=== PATIENT | male | born 1930 | race Caucasian/White ===

== ENCOUNTER 2018-03-13 19:16 | Emergency (ER) | payer OTHER ==
[~2018-03-13] VITALS: Ht 162.6 cm; Wt 63.5 kg
[2018-03-13 19:26] VITALS: Ht 162.6 cm; Wt 63.5 kg
[2018-03-13 21:22] VITALS: BP 128/78
== END 2018-03-13 21:22 | disposition home or self-care (01) ==
LOC: ED 19:16
DX: S09.90XA Unspecified injury of head, initial encounter (principal); S00.91XA Abrasion of unspecified part of head, initial encounter; W01.10XA Fall on same level from slipping, tripping and stumbling with subsequent striking against unspecified object, initial encounter; Y93.89 Activity, other specified; Y92.89 Other specified places as the place of occurrence of the external cause; Y99.8 Other external cause status; I10 Essential (primary) hypertension; E11.9 Type 2 diabetes mellitus without complications

== ENCOUNTER 2018-03-31 18:48 | Inpatient (IN) | payer OTHER ==
[~2018-03-31] VITALS: Ht 165.1 cm; Wt 54.6 kg
[2018-03-31 19:00] VITALS: Ht 165.1 cm; Wt 54.6 kg
[2018-03-31 19:52] LABS: BASOPHIL % 0.2 % (0-2); PLATELET COUNT 257 x10^3mcL (130-400)
[2018-03-31 19:54] LABS: RED CELL DISTRIBUTION WIDTH 15.2 % (11.5-14.5)
[2018-03-31 19:57] LABS: CALCIUM 8.3 mg/dL (8.5-10.1); CARBON DIOXIDE 27.9 mmol/L (21-32); CHLORIDE SERUM 101 mmol/L (98-107); CREATININE SERUM 0.9 mg/dL (0.7-1.3); GLUCOSE SERUM 142 mg/dL (74-106); POTASSIUM SERUM 3.3 mmol/L (3.5-5.1); SODIUM SERUM 141 mmol/L (136-145)
[2018-03-31 20:09] LABS: ALBUMIN 3.7 g/dL (3.4-5.0); ALKALINE PHOSPHATASE 122 U/L (46-116); ALT/SGPT 22 U/L (16-63); AMYLASE 61 U/L (25-115); AST/SGOT 25 U/L (15-37); BILIRUBIN TOTAL 1.7 mg/dL (0.20-1.00); CHOLESTEROL 178 mg/dL (<200); LIPASE 155 IU/L (73-393); T4(THYROXINE) 10.6 ug/dL (4.7-13.3); TOTAL PROTEIN, SERUM 7.2 g/dL (6.4-8.2)
[2018-03-31 20:15] LABS: HDL CHOLESTEROL 68 mg/dL (40-60)
[2018-03-31 21:39] LABS: UA SPECIFIC GRAVITY 1.025 (1.005-1.035); microscopic required? YES; urine erythrocyte 1+ (NEGATIVE)
[2018-03-31 21:51] LABS: AMPHETAMINE QUAL UR NONE DETECTED (See below)
[2018-04-01] MEDS ORDERED: METFORMIN HCL750 MG PO (01:03)
[2018-04-01] MEDS ORDERED: COZAAR100 MG PO (01:03)
[2018-04-01] MEDS ORDERED: DIGOX0.125 MG PO (01:04)
[2018-04-01] MEDS ORDERED: TOPROL XL25 MG PO (01:04)
[2018-04-01] MEDS ORDERED: B-121000 MC2 PO (01:04)
[2018-04-01] MEDS ORDERED: METOPROLOL TART25 M1 PO (01:05)
[2018-04-01 02:50] VITALS: BP 167/102
[2018-04-01 05:54] VITALS: BP 161/101
[2018-04-01 07:05] LABS: ALKALINE PHOSPHATASE 103 U/L (46-116); ALT/SGPT 21 U/L (16-63); AST/SGOT 22 U/L (15-37); BILIRUBIN TOTAL 1.46 mg/dL (0.20-1.00); CALCIUM 7.6 mg/dL (8.5-10.1); CARBON DIOXIDE 27.5 mmol/L (21-32); CHLORIDE SERUM 102 mmol/L (98-107); CREATININE SERUM 0.7 mg/dL (0.7-1.3); GLUCOSE SERUM 116 mg/dL (74-106); MAGNESIUM 1.4 mg/dL (1.8-2.4); PHOSPHOROUS 2.5 mg/dL (2.5-4.9); POTASSIUM SERUM 3.4 mmol/L (3.5-5.1); SODIUM SERUM 137 mmol/L (136-145)
[2018-04-01 07:14] LABS: ALBUMIN 2.9 g/dL (3.4-5.0); BASOPHIL % 0.5 % (0-2); PLATELET COUNT 208 x10^3mcL (130-400); RED CELL DISTRIBUTION WIDTH 14.5 % (11.5-14.5)
[2018-04-01 08:41] VITALS: BP 153/88
[2018-04-01 16:02] VITALS: BP 157/94
[2018-04-01 20:29] VITALS: BP 152/100
[2018-04-01 23:10] VITALS: BP 143/88
[2018-04-02 05:31] VITALS: BP 143/93
[2018-04-02 07:24] LABS: CALCIUM 8.2 mg/dL (8.5-10.1); CARBON DIOXIDE 24.8 mmol/L (21-32); CHLORIDE SERUM 101 mmol/L (98-107); CREATININE SERUM 0.8 mg/dL (0.7-1.3); GLUCOSE SERUM 174 mg/dL (74-106); MAGNESIUM 1.7 mg/dL (1.8-2.4); POTASSIUM SERUM 3.7 mmol/L (3.5-5.1); SODIUM SERUM 135 mmol/L (136-145)
[2018-04-02 08:37] VITALS: BP 148/82
[2018-04-02 20:58] VITALS: BP 140/94
[2018-04-03 04:40] VITALS: BP 148/91
[2018-04-03 09:47] VITALS: BP 145/88
[2018-04-03 11:02] LABS: ALKALINE PHOSPHATASE 111 U/L (46-116); ALT/SGPT 18 U/L (16-63); AST/SGOT 17 U/L (15-37); BILIRUBIN TOTAL 0.8 mg/dL (0.20-1.00); CALCIUM 7.8 mg/dL (8.5-10.1); CARBON DIOXIDE 26.3 mmol/L (21-32); CHLORIDE SERUM 103 mmol/L (98-107); CREATININE SERUM 0.6 mg/dL (0.7-1.3); GLUCOSE SERUM 233 mg/dL (74-106); POTASSIUM SERUM 3.3 mmol/L (3.5-5.1); SODIUM SERUM 138 mmol/L (136-145)
[2018-04-03 11:03] LABS: ALBUMIN 2.9 g/dL (3.4-5.0)
[2018-04-03 11:06] LABS: BASOPHIL % 0.3 % (0-2); PLATELET COUNT 208 x10^3mcL (130-400)
[2018-04-03 11:11] LABS: RED CELL DISTRIBUTION WIDTH 15.2 % (11.5-14.5)
[2018-04-03 12:37] VITALS: BP 145/96
[2018-04-03 20:59] VITALS: BP 104/67
[2018-04-04 05:48] VITALS: BP 141/86
[2018-04-04 06:27] LABS: ALKALINE PHOSPHATASE 108 U/L (46-116); ALT/SGPT 17 U/L (16-63); AST/SGOT 18 U/L (15-37); BILIRUBIN TOTAL 0.64 mg/dL (0.20-1.00); CALCIUM 8.3 mg/dL (8.5-10.1); CARBON DIOXIDE 27.2 mmol/L (21-32); CHLORIDE SERUM 102 mmol/L (98-107); GLUCOSE SERUM 145 mg/dL (74-106); MAGNESIUM 1.7 mg/dL (1.8-2.4); PHOSPHOROUS 2.9 mg/dL (2.5-4.9); POTASSIUM SERUM 3.5 mmol/L (3.5-5.1); SODIUM SERUM 136 mmol/L (136-145)
[2018-04-04 06:50] LABS: ALBUMIN 2.8 g/dL (3.4-5.0)
[2018-04-04 07:08] LABS: BASOPHIL % 0.3 % (0-2); PLATELET COUNT 217 x10^3mcL (130-400)
[2018-04-04 07:10] LABS: RED CELL DISTRIBUTION WIDTH 14.9 % (11.5-14.5)
[2018-04-04 08:54] VITALS: BP 121/78
[2018-04-04 12:17] VITALS: BP 134/94
[2018-04-04 17:00] VITALS: BP 113/73
[2018-04-04 19:49] VITALS: BP 105/67
[2018-04-05 06:45] VITALS: BP 142/76
[2018-04-05 08:20] VITALS: BP 131/69
[2018-04-05 10:08] LABS: ALKALINE PHOSPHATASE 107 U/L (46-116); ALT/SGPT 14 U/L (16-63); AST/SGOT 15 U/L (15-37); BILIRUBIN TOTAL 0.7 mg/dL (0.20-1.00); CALCIUM 8.2 mg/dL (8.5-10.1); CARBON DIOXIDE 27.4 mmol/L (21-32); CHLORIDE SERUM 100 mmol/L (98-107); CREATININE SERUM 0.8 mg/dL (0.7-1.3); GLUCOSE SERUM 251 mg/dL (74-106); SODIUM SERUM 133 mmol/L (136-145)
[2018-04-05 10:10] LABS: ALBUMIN 2.7 g/dL (3.4-5.0); TOTAL PROTEIN, SERUM 5.9 g/dL (6.4-8.2)
[2018-04-05 20:00] VITALS: BP 131/96
[2018-04-06 06:09] VITALS: BP 135/79
[2018-04-06 09:18] VITALS: BP 137/82
[2018-04-06 12:57] VITALS: BP 133/72
[2018-04-06 17:26] VITALS: BP 100/64
[2018-04-06 20:48] VITALS: BP 111/66
[2018-04-07 05:20] VITALS: BP 101/71
[2018-04-07 08:50] VITALS: BP 105/66
[2018-04-07 12:38] VITALS: BP 127/81
[2018-04-07 15:53] VITALS: BP 127/81
== END 2018-04-07 17:17 | DRG 604 ==
LOC: ED 18:48 → DU 23:40 → MU 23:40 → DU 04-03 05:10
PROVIDERS: Emergency Medicine; Internal Medicine; Internal Medicine Pulmonary Disease
DX: S80.12XA Contusion of left lower leg, initial encounter (principal); G93.41 Metabolic encephalopathy; N39.0 Urinary tract infection, site not specified; E46 Unspecified protein-calorie malnutrition; F05 Delirium due to known physiological condition; F03.90 Unspecified dementia, unspecified severity, without behavioral disturbance, psychotic disturbance, mood disturbance, and anxiety; R29.6 Repeated falls; R62.7 Adult failure to thrive; E87.6 Hypokalemia; E83.42 Hypomagnesemia; E11.9 Type 2 diabetes mellitus without complications; I48.91 Unspecified atrial fibrillation; S80.11XA Contusion of right lower leg, initial encounter; F99 Mental disorder, not otherwise specified; R54 Age-related physical debility; K40.90 Unilateral inguinal hernia, without obstruction or gangrene, not specified as recurrent; I10 Essential (primary) hypertension; Z68.21 Body mass index [BMI] 21.0-21.9, adult; W18.39XA Other fall on same level, initial encounter; Y92.028 Other place in mobile home as the place of occurrence of the external cause; Z79.84 Long term (current) use of oral hypoglycemic drugs
CPT/HCPCS: 82962; 83880; 97110-GP; 97116-GP; 97530-GP; 97535-GP; G0480; J1815; J3475; J7030; J7050